=== PATIENT | female | born 1960 | race American Indian/Alaskan Native ===

== ENCOUNTER 2020-02-05 04:49 | Emergency (ER) | payer SELFPAY ==
[2020-02-05 05:04] VITALS: BP 122/52
--- NOTE | 2020-02-05 10:21 | Emergency Department Report ---
ED General Adult HPI - General Chief complaint: Pain General Stated complaint: FEVER/BODY AARON Time Seen by Provider: 02/05/20 10:17 Source: patient Mode of arrival: Ambulatory Limitations: No Limitations - History of Present Illness Initial comments: The patient was evaluated in the emergency department for symptoms described in the history of present illness. He/she was evaluated in the context of the global COVID-19 pandemic, which necessitated consideration that the patient might be at risk for infection with the virus that causes COVID-19. Ins titutional protocols and algorithms that pertain to the evaluation of patients at risk for COVID-19 are in a state of rapid change based on information released by regulatory bodies including the CDC and federal and state organizations. These policies and algorithms were followed during the patient's care in the emergency department. Please note that these policies, procedures and recommendations changed on a rapid basis. 59-year-old -[place] female presents to the emergency room bilateral hip pain that travels down to her feet x5 months progressively gotten worse last night. Patient denies any recent traumas. Patient denies any fever no chills no nausea no vomiting. She denies any trauma. Patient states that she has taken pain medication last night. Denies any urinary symptoms. No chest pain or shortness of breathing. Onset/Timin -: month(s) Radiation: extremity, distal Severity scale (0 -10): 10 Quality: sharp Consistency: intermittent Associated Symptoms: denies other symptoms Treatments Prior to Arrival: none - Related Data Previous Rx's Medication Instructions Recorded Last Taken Type Ibuprofen [Motrin 800 MG tab] 800 mg PO Q8HR PRN #30 tablet 02/05/20 Unknown Rx predniSONE [Deltasone] 40 mg PO QDAY #10 tablet 02/05/20 Unknown Rx Allergies Allergy/AdvReac Type Severity Reaction Status Date / Time No Known Allergies Allergy Unverified 02/05/20 10:22 ED Review of Systems ROS: Stated complaint: FEVER/BODY AARON Other details as noted in HPI Comment: All other systems reviewed and negative ED Past Medical Hx - Past Medical History Previous Medical History?: No - Surgical History Past Surgical History?: No - Social History Smoking Status: Never Smoker Substance Use Type: None - Medications Home Medications: Home Medications Medication Instructions Recorded Confirmed Last Taken Type Ibuprofen [Motrin 800 MG tab] 800 mg PO Q8HR PRN #30 tablet 02/05/20 Unknown Rx predniSONE [Deltasone] 40 mg PO QDAY #10 tablet 02/05/20 Unknown Rx ED Physical Exam - General Limitations: No Limitations General appearance: alert - Head Head exam: Present: atraumatic, normocephalic - Eye Eye exam: Present: normal appearance - ENT ENT exam: Present: mucous membranes moist - Neck Neck exam: Present: normal inspection, full ROM - Respiratory Respiratory exam: Absent: accessory muscle use - GI/Abdominal GI/Abdominal exam: Present: soft - Back Exam Back exam: Present: normal inspection, full ROM - Expanded Back Exam Expanded Back exam: Sciatic Notch Tenderness: Left, Right, Positive Straight Leg Raise: Left, Right - Neurological Exam Neurological exam: Present: alert, oriented X3, normal gait - Psychiatric Psychiatric exam: Present: normal affect, normal mood - Skin Skin exam: Present: warm, dry, intact, normal color. Absent: rash ED Course Vital Signs 02/05/20 04:56 Temperature 97.3 F L Pulse Rate 70 Respiratory 18 Rate Blood Pressure 122/52 O2 Sat by Pulse 99 Oximetry ED Medical Decision Making - Medical Decision Making 59-year-old -[place] female presents to the emergency room bilateral hip pain that travels down to her feet x5 months progressively gotten worse last night. Patient denies any recent traumas. Patient denies any fever no chills no nausea no vomiting. She denies any trauma. Patient states that she has taken pain medication last night. Denies any urinary symptoms. No chest pain or shortness of breathing. Critical care attestation.: If time is entered above; I have spent that time in minutes in the direct care of this critically ill patient, excluding procedure time. ED Disposition Clinical Impression: Radiculopathy with lower extremity symptoms Disposition: - TO HOME OR SELFCARE Is pt being admited?: No Does the pt Need Aspirin: No Condition: Stable Additional Instructions: Take medications as prescribed. Follow up with a community provider. Prescriptions: predniSONE [Deltasone] 40 mg PO QDAY #10 tablet Ibuprofen [Motrin 800 MG tab] 800 mg PO Q8HR PRN #30 tablet PRN Reason: Pain , Severe (7-10) Referrals: PRIMARY CARE, [Primary Care Provider] - 3-5 Days [facility] [Provider Group] - 3-5 Days Forms: Work/School Release Form(ED)
[2020-02-05] MEDS ORDERED: KETOROLAC 30 MG/1 ML INJ IM ONE (10:22)
[2020-02-05] MEDS ORDERED: dexAMETHasone 20 MG/5 ML VIAL IV ONE (10:22)
== END 2020-02-05 11:12 | disposition home or self-care (01) ==
LOC: ED 04:49
DX: M54.10 Radiculopathy, site unspecified (principal); Z79.899 Other long term (current) drug therapy
CPT/HCPCS: 96372; 96374; 99282; J1100; J1885